=== PATIENT | male | born 1960 | race Caucasian/White ===

== ENCOUNTER 2022-03-22 16:15 | Emergency (ER) | payer OTHER, SELFPAY ==
[2022-03-22 16:34] VITALS: BP 144/87; PULSE 115; RESP 16; TEMP 37.1; O2SAT 98
--- NOTE | 2022-03-22 16:38 | ED.SKABFB ---
HPI - Skin/Abscess/Foreign Bdy General Chief complaint: Eye Problems Stated complaint: Right Eye Pain Time Seen by Provider: 03/22/22 16:38 Source: patient Mode of arrival: ambulatory Limitations: no limitations History of Present Illness HPI narrative: 61-year-old male presents with rash around eye for 2 days. States that he was working out in yard before rash started. Does not feel it is poison huong due to it not spreading but states is very itchy. This morning he woke up with significant swelling to right eye that has improved throughout the day. No drainage. All systems reviewed and negative except as noted above. Related Data Allergies Allergy/AdvReac Type Severity Reaction Status Date / Time No Known Allergies Allergy Verified 11/02/14 19:04 Review of Systems Review of Systems: CONSTITUTIONAL: Denies fever, chills, or sweats. EYES: Denies visual changes, redness, or discharge. ENT: Denies rhinorrhea, congestion, sore throat, or otalgia. CARDIOVASCULAR: Denies chest pain, palpitations, or edema. RESPIRATORY: Denies cough or dyspnea. GASTROINTESTINAL: Denies abdominal pain, nausea, vomiting, or diarrhea. GENITOURINARY: Denies dysuria or hematuria. SKIN: Reports redness, itching around right eye. MUSCULOSKELETAL: Denies back pain, joint pain, or myalgia. NEUROLOGIC: Denies headache, numbness, or weakness. PSYCHIATRIC: Denies anxiety or depression. All other systems reviewed are negative, except as documented in HPI. PMFSH Comments At time of signature, agree with nursing past medical, surgical, social and family history. There is no relevant family history pertinent to the presenting complaint. Exam Narrative: GENERAL: This is a well-nourished, well-developed patient, in no apparent distress. HEAD: normocephalic, atraumatic. EYES: PERRL. Sclera clear/white. No drainage. Vision is grossly intact. EARS: External ears normal NOSE: External nose normal NECK: Neck supple, non-tender without lymphadenopathy, masses or thyromegaly. CARDIOVASCULAR: Regular rate and rhythm without murmurs, gallops, or rubs. RESPIRATORY: Clear to auscultation. Breath sounds equal bilaterally. No wheezes, rales, or rhonchi. SKIN: warm, Dry, intact, good texture and turgor. There is erythema with mild swelling to upper and lower eyelids. There is a erythematous papule to right upper eyelid concerning for possible insect bite. NEURO: awake, alert, and oriented to person, place and time. There were no obvious focal neurologic abnormalities. EXTREMITIES: Normal range of motion to all extremities Course Course Level of Care: Express Care Visit Vital Signs Vital signs: Vital Signs Temperature 37.1 C 03/22/22 16:34 Pulse Rate 115 H 03/22/22 16:34 Respiratory Rate 16 03/22/22 16:34 Blood Pressure 144/87 H 03/22/22 16:34 Pulse Oximetry 98 03/22/22 16:34 Temperature 37.1 C 03/22/22 16:34 Pulse Rate 115 H 03/22/22 16:34 Respiratory Rate 16 03/22/22 16:34 Blood Pressure 144/87 H 03/22/22 16:34 Pulse Oximetry 98 03/22/22 16:34 Reviewed MDM - Skin/Abscess/Foreign Bdy MDM Narrative Medical decision making narrative: Patient is aware of diagnosis, understands and agrees to treatment plan. Anticipatory guidance given. Patient agrees to follow-up as directed and is aware of reasons to seek care at the emergency department. Portions of this record may have been created with voice recognition software Differential Diagnosis Differential diagnosis: Likely abscess of skin or subcutaneous tissue, cellulitis, eczema, insect bites and contact dermatitis Discharge Plan Discharge Clinical Impression: Rash and nonspecific skin eruption Patient Disposition: Home, Self-Care Condition: Stable Instructions: Antibiotic Form, Acute Rash (ED) Additional Instructions: Take medications as prescribed. Take hydroxyzine as needed for itching. This medication may make you drowsy. Follow-up with your primary care ph
== END 2022-03-22 16:50 | disposition home or self-care (01) ==
PROVIDERS: Emergency Provider Nurse Practitioner Family
DX: R21 Rash and other nonspecific skin eruption (principal); K21.9 Gastro-esophageal reflux disease without esophagitis
CPT/HCPCS: 99213; G0463

== ENCOUNTER 2023-02-14 08:21 | Emergency (ER) | payer OTHER, SELFPAY ==
[2023-02-14] VITALS (8 sets, daily range): BP systolic 108–173; BP diastolic 73–95; PULSE 87–96; RESP 15–23; TEMP 36.6; O2SAT 90–98
--- NOTE | ~2023-02-14 | XR_ITS ---
EXAMINATION: XR shoulder RT min 2V DATE: 02/14/2023 09:17 INDICATION: Right shoulder injury and pain. TECHNIQUE: 4 views of right shoulder were obtained. COMPARISON: None. FINDINGS: Bone alignment is normal. There is a nondisplaced fracture of the body of the sternum. Ther e is an avulsion fracture of right clavicle at the attachment of coracoclavicular ligament. There are fractures of the right third, fourth, and fifth ribs. The glenohumeral joint is normal. There is mil d acromioclavicular joint osteoarthritis. IMPRESSION: 1. Fractures of the right scapula, right clavicle, and right third-fifth ribs. Reviewed, dictated and finalized at location A.
--- NOTE | ~2023-02-14 | XR_ITS ---
EXAMINATION: XR humerus RT DATE: 02/14/2023 09:17 INDICATION: Right upper arm injury. TECHNIQUE: 2 views of right humerus were obtained. COMPARISON: None. FINDINGS: Bone alignment is normal. There is a nondisplaced fracture of the body of the sternum. Ther e is a fracture of the right clavicle at the attachment of coracoclavicular ligament. There are fract ures of the right third-fifth ribs. Glenohumeral joint is normal. There is moderate acromioclavicular joint osteoarthritis. IMPRESSION: 1. Fractures of the right scapula, right clavicle, and right third-fifth ribs. Reviewed, dictated and finalized at location A.
--- NOTE | ~2023-02-14 | CT_ITS ---
EXAMINATION: CT cervical spine wo con DATE: 02/14/2023 08:59 INDICATION: Neck injury. Fall. TECHNIQUE: Computed tomography (CT) of the cervical spine was performed without intravenous contrast. Automated exposure control and iterative reconstruction technique were employed. The dose-length pro duct was 481.91 mGy-cm. COMPARISON: None FINDINGS: There is mild emphysema. Bone alignment is normal. Vertebral body heights are normal. There is mildly decreased disc height at C4-C5. The following disc levels are specifically discussed: C2-C3: There is mild bilateral uncovertebral joint osteoarthritis. There is moderate left facet joint osteoarthritis. There is no neural foraminal stenosis. There is no central canal stenosis. C3-C4: There is severe bilateral uncovertebral joint osteoarthritis. There is mild right and moderate left facet joint osteoarthritis. There is mild bilateral neural foraminal stenosis. There is mild ce ntral canal stenosis. C4-C5: There is mild bilateral uncovertebral joint osteoarthritis. There is mild bilateral facet join t osteoarthritis. There is no neural foraminal stenosis. There is no central canal stenosis. C5-C6: There is mild bilateral uncovertebral joint osteoarthritis. There is no facet joint osteoarthr itis. There is no neural foraminal stenosis. There is mild central canal stenosis. C6-C7: There is no uncovertebral joint osteoarthritis. There is mild bilateral facet joint osteoarthr itis. There is no neural foraminal stenosis. There is no central canal stenosis. C7-T1: There is no uncovertebral joint osteoarthritis. There is severe right and moderate left facet joint osteoarthritis. There is mild right neural foraminal stenosis. There is no central canal stenos is. IMPRESSION: 1. No fracture. 2. Mild cervical spondylosis. Reviewed, dictated and finalized at location A.
--- NOTE | ~2023-02-14 | XR_ITS ---
EXAMINATION: XR elbow RT min 3V DATE: 02/14/2023 09:17 INDICATION: Right elbow injury and pain. TECHNIQUE: 4 views of right elbow were obtained. COMPARISON: None. FINDINGS: Bone alignment is normal. No fracture. Joint spaces are normal. There are enthesophytes at lateral humeral epicondyle and olecranon. No elbow joint effusion. IMPRESSION: 1. No fracture. Reviewed, dictated and finalized at location A. IMPRESSION: 1. No fracture.
--- NOTE | ~2023-02-14 | XR_ITS ---
EXAMINATION: XR ribs RT 2V DATE: 02/14/2023 09:19 INDICATION: Right chest injury and pain. TECHNIQUE: 2 views of the right ribs on 3 radiographs were obtained. COMPARISON: Chest 2 views 09/08/2010 FINDINGS: There is no right-sided pneumonia, pleural effusion, or pneumothorax. There are fractures o f the right third-fifth ribs. There is a nondisplaced fracture of the body of the scapula. There is a comminuted fracture of the clavicle involving the middle and distal thirds. The main distal fracture fragment demonstrates variable displacement. IMPRESSION: 1. Fractures of the right scapula, clavicle, and right third-fifth ribs. Reviewed, dictated and finalized at location A.
--- NOTE | ~2023-02-14 | CT_ITS ---
EXAMINATION: CT chest abdomen pelvis w con DATE: 02/14/2023 11:06 CDT INDICATION: Multisystem trauma. TECHNIQUE: Computed tomography (CT) of the chest, abdomen, and pelvis was performed with 100 cc Omnip aque 350 intravenous contrast. The dose-length product was 1375.49 mGy-cm. Automated exposure control and iterative reconstruction technique were employed. COMPARISON: CT dated 04/08/2015 FINDINGS: CHEST CT: Cardiomegaly. No significant pleural or pericardial effusion. No thoracic lymphadenopathy. There is a 1 cm hypodense mass of the right thyroid gland, likely benign. There is a comminuted displaced right midclavicular fracture. There is a fracture of the right scapular body. There is dependent atelectas is. No endobronchial lesions. There is a subpleural band in the right lower lobe. No definite pneumot horax. There is focal prominence of the right extrapleural soft tissues, possibly hemothorax. There a re acute right third, fourth and fifth rib fractures. ABDOMEN/PELVIS CT: Fatty infiltration of the liver. The spleen, pancreas, adrenal glands and kidneys are unremarkable. G allbladder is present. Bladder is distended. Nonobstructive bowel gas pattern. There is mild osteoart hritis of the hips. There is facet hypertrophy at L4-5 and L5-S1 with grade 1 degenerative spondyloli sthesis at L4-5. The bladder is severely distended. Nonobstructive bowel pattern. No free air or free fluid. IMPRESSION: 1. Acute fractures of the right scapula, clavicle and right third-fifth ribs with possible small righ t hemothorax. Reviewed, dictated and finalized at location L. IMPRESSION: 1. Acute fractures of the right scapula, clavicle and right third-fifth ribs wi th possible small right hemothorax.
--- NOTE | 2023-02-14 08:37 | PC.NURSE ---
Pt states he fell from approx 5-6 feet. No LOC. states he did not hit his head
--- NOTE | 2023-02-14 09:26 | ED.FALL ---
HPI - Fall General Chief Complaint: Fall <JOSE Cooney Last Filed: 02/14/23 12:09> Stated Complaint: fell from top of semi <JOSE Cooney Last Filed: 02/14/23 12:09> Time Seen by Provider: 02/14/23 09:07 <JOSE Cooney Last Filed: 02/14/23 12:09> History of Present Illness HPI Narrative: Patient is a 62-year-old male here for evaluation of a fall today. Patient states that he lost his footing while he was standing on the edge of his semitruck and landed directly on his right side. Since the fall he has had severe right-sided rib pain, shoulder pain, elbow pain. He has not taken any medicine for his symptoms. He has been unable to move his right upper extremity due to discomfort. He denies any difficulty breathing. He does not take blood thinners. <JOSE Cooney Last Filed: 02/14/23 12:09> Related Data Home Medications: Home Medications Medication Instructions Recorded Confirmed No Home Medications 02/14/23 02/14/23 <JOSE Cooney Last Filed: 02/14/23 12:09> Allergies/Adverse Reactions: Allergies Allergy/AdvReac Type Severity Reaction Status Date / Time No Known Allergies Allergy Verified 02/14/23 08:40 <JOSE Cooney Last Filed: 02/14/23 12:09> Review of Systems Review of Systems: Gen.: Denies fevers or chills Eyes: Denies eye pain or visual change ENT: Denies congestion Respiratory: Denies shortness of breath or cough CV: Denies chest pain or palpitations GI: Denies abdominal pain nausea, emesis or diarrhea denies burning, urgency, frequency or hematuria Musculoskeletal: reports right sided rib pain, elbow pain and shoulder pain Neuro: Denies numbness, tingling, weakness or focal weakness Skin: Denies rash Except as documented, all other systems reviewed and negative <JOSE Cooney Last Filed: 02/14/23 12:09> Exam Narrative: APPEARANCE: uncomfortable appearing Head: Normocephalic and atraumatic. EYES: PERRLA/EOMI, conjunctivae clear NOSE: No nasal drainage EARS: External ear normal in appearance THROAT: Oropharynx is clear. Mucous membranes are moist. NECK: Supple. No adenopathy, no masses. RESPIRATORY: Airway patent, respirations nonlabored. Clear to auscultation bilaterally, no rales, rhonchi, wheezing. CARDIOVASCULAR: Regular rate and rhythm without murmurs, rubs, or gallops. ABDOMINAL: Normoactive bowel sounds. Soft, nontender, nondistended. No rebound tenderness or guarding. MUSCULOSKELETAL: tenderness and bruising to the right side of the thorax to ribs 5-7. no midline tenderness to c, t or l spine. right upper extremity is held in flexion and internal rotation at the elbow. there is tenderness to palpation at the olecranon. no tenderness to the humeral head; sensation is intact. no tenderness to hand. NEURO: Normal speech. No focal neurologic deficits. SKIN: Skin is warm and dry. No rashes. PSYCHIATRIC: Normal affect/mood. <Carolyn Mcdowell PA-C - Last Filed: 02/14/23 12:09> Course HUNTER/PA Physician Supervision For this patient encounter, I reviewed the HUNTER or PA documentation, treatment plan, and medical decision making; and I had [id number] time with this patient. <Katya Francois MD - Last Filed: 02/14/23 11:52> Vital Signs Vital signs: Vital Signs Temperature 97.8 F 02/14/23 08:26 Pulse Rate 96 02/14/23 08:26 Respiratory Rate 18 02/14/23 08:26 Blood Pressure 173/77 H 02/14/23 08:26 Pulse Oximetry 98 02/14/23 08:26 Oxygen Delivery Room Air 02/14/23 08:26 Temperature 97.8 F 02/14/23 08:26 Pulse Rate 92 02/14/23 11:24 Respiratory Rate 20 02/14/23 11:24 Blood Pressure 108/83 02/14/23 11:24 Pulse Oximetry 92 02/14/23 11:24 Oxygen Delivery Room Air 02/14/23 08:26 <Carolyn Mcdowell PA-C - Last Filed: 02/14/23 12:09> Vital Signs Temperature 97.8 F 02/14/23 08:26
[2023-02-14] MEDS: fentaNYL CITRATE INJ (*CRX) 100 MCG/2 ML VIAL 50 MCG IV PUSH ×2 (10:24→11:46)
[2023-02-14] MEDS: LIDOCAINE 5% PATCH 1 PATCH TRANSDERM (10:24)
[2023-02-14 10:30] LABS: Hematocrit 44.5 % (42.0-52.0); Hemoglobin 15.7 g/dL (14.0-18.0); Mean Corpuscular HGB Conc 35.3 g/dl (32-36); Mean Corpuscular Hemoglobin 32.4 pg (26-34); Mean Corpuscular Volume 91.8 fl (80-100); Mean Platelet Volume 9.5 fl (7.4-10.4); Platelet Count Result 209 k/mm3 (150-375); Red Blood Count 4.85 M/mm3 (4.6-6.20); Red Cell Distribution Width 12.7 % (11.5-14.5); White Blood Count 24.5 K/mm3 (4.5-10.0)
[2023-02-14 10:34] LABS: Anion Gap 9 mmol/L (8-16); Blood Urea Nitrogen 13 mg/dL (9-20); Calcium 8.7 mg/dL (8.4-10.2); Carbon Dioxide 23 mmol/L (22-30); Chloride 96 mmol/L (98-107); Estimated CRCL calculation 101 ml/min; Estimated Glomerular Filt Rate > 60; Glucose 434 mg/dL (65-110); Potassium 4.7 mmol/L (3.4-5.0); Sodium 128 mmol/L (137-145)
[2023-02-14 11:17] LABS: Lymphocytes Absolute Manual 0.98 K/mm3 (1.1-4.5); Monocytes Absolute Manual 0.73 K/mm3 (0.1-0.90); Neutrophils Absolute Manual 22.78 K/mm3 (1.3-6.7); Total Cells Counted 100
[2023-02-14 11:18] LABS: Band Neutrophils Percent 5 % (0-6); Lymphocytes Percent Manual 4 % (18-44); Monocytes Percent Manual 3 % (3-9); Neutrophils Percent Manual 88 % (46-73)
[2023-02-14 11:19] LABS: Platelet Clumps Present; Platelet Estimate Adequate (Adequate); Schistocytes None Seen (NORMAL)
[2023-02-14] MEDS: SODIUM CHLORIDE 0.9% IV 1,000 ML 999 ML IV CONT (11:47)
--- NOTE | 2023-02-14 11:52 | PC.NURSE ---
[facility] accepted transfer to [facility] ER ETA 1215 Trip # [id number]
--- NOTE | 2023-03-13 10:11 | PC.NURSE ---
LATE ENTRY This note is being entered to document information to the patient's record. The following information was omitted on [02/14/23], by [Evi Smith RN]. IV stop time for NS was 1235
== END 2023-02-14 12:36 | disposition short-term general hospital (02) ==
PROVIDERS: Emergency Provider Physician Assistant; PCP Family Medicine
DX: S27.1XXA Traumatic hemothorax, initial encounter (principal); S22.41XA Multiple fractures of ribs, right side, initial encounter for closed fracture; S42.114A Nondisplaced fracture of body of scapula, right shoulder, initial encounter for closed fracture; S42.021A Displaced fracture of shaft of right clavicle, initial encounter for closed fracture; M47.812 Spondylosis without myelopathy or radiculopathy, cervical region; W17.89XA Other fall from one level to another, initial encounter
CPT/HCPCS: 36415; 71100; 71260; 72125; 73030; 73060; 73080; 74177; 80048; 85025; 96361; 96374; 96376; 99285; A4565; A9270; J3010; J7030; Q9967